=== PATIENT | female | born 1970 | race Caucasian/White ===

== ENCOUNTER 2017-04-08 09:38 | Emergency (ER) | payer BC ==
[~2017-04-08] VITALS: Ht 167.6 cm; Wt 80.0 kg
[2017-04-08] MEDS ORDERED: ONDANSETRON 2MG/ML, 2ML ONE (10:16)
[2017-04-08] MEDS ORDERED: THIAMINE 100MG TABLET ONE (10:16)
[2017-04-08] MEDS ORDERED: LORazepam 2 MG/ML, 1ML ONE (10:17)
[2017-04-08] MEDS: LORazepam 2 MG/ML, 1ML IVPush PRN ×2 (10:20→11:44)
[2017-04-08] MEDS ORDERED: SODIUM CHLORIDE 0.9% 1,000ML IVBOLUS ONE (10:30)
[2017-04-08] MEDS ORDERED: SODIUM CHLORIDE FLUSH 10ML SYR IVF ONE (10:30)
[2017-04-08] MEDS ORDERED: THIAMINE 100 MG in SODIUM CHLORIDE 0.9% 50 ML IVPB ONE (10:30)
[2017-04-08] MEDS ORDERED: ONDANSETRON 2MG/ML, 2ML IVPush ONE (10:30)
[2017-04-08] MEDS ORDERED: CHLORDIAZEPOXIDE 25 MG CAPSULE PO PRN (10:30)
[2017-04-08 10:50] LABS: ASPARTATE AMINO TRANSFERASE 63 U/L (15-37); BLOOD UREA NITROGEN 14 mg/dL (7-18)
[2017-04-08] MEDS ORDERED: POTASSIUM CHLORIDE 20 MEQ TAB.ER.PRT ONE (11:17)
[2017-04-08] MEDS ORDERED: POTASSIUM CHLORIDE 20 MEQ TAB.ER.PRT PO ONE (11:30)
[2017-04-08] MEDS ORDERED: POTASSIUM CHLORIDE 20 MEQ in SODIUM CHLORIDE 0.9% 250 ML IV ONE (11:30)
[2017-04-08] MEDS ORDERED: MAGNESIUM SULFATE 1 GM/2 ML IVPush ONE (12:30)
[2017-04-08] MEDS ORDERED: MAGNESIUM SULFATE 1 GM in SODIUM CHLORIDE 0.9% 50 ML IV ONE (12:48)
[2017-04-08 14:01] VITALS: BP 110/83
== END 2017-04-08 14:27 | disposition home or self-care (01) ==
LOC: ED 13:43
DX: F10.239 Alcohol dependence with withdrawal, unspecified (principal); E87.6 Hypokalemia; J45.909 Unspecified asthma, uncomplicated; F17.200 Nicotine dependence, unspecified, uncomplicated
CPT/HCPCS: 36415; 80053; 80307; 83690; 85025; 96361; 96365; 96367; 96375; 99284; J2060; J2405; J3411; J3475; J3480; J7030; J7050